=== PATIENT | male | born 1970 | race Two or more races ===

== ENCOUNTER 2019-04-16 20:40 | Emergency (ER) | payer MEDICARE ==
[2019-04-16] MEDS ORDERED: ERYTHROMYCIN 0.5% OPH OINT 1 GM UNIT DOSE OU ONE (21:51)
--- NOTE | 2019-04-16 21:56 | ER Document Report ---
HPI - HPI Time Seen by Provider: 04/16/19 21:49 Notes: CHIEF COMPLAINT: Bilateral eye redness and discharge HPI: 49-year-old male with hypertension history presenting for bilateral eye itching, redness and discharge. Patient states that he had conjunctivitis a year ago and it felt the exact same way. No glaucoma history. Patient denies visual change or loss. He reports drainage from both eyes. States he has been using Polytrim which has not been helping. Patient states last year when he had this he was placed on erythromycin ointment in the eyes and it worked very well. [place] is [place] from out of town ROS: See HPI - all other systems were reviewed and are otherwise negative Constitutional: no fever Eyes: + drainage, no blurred vision ENT: no runny nose, no sore throat Integumentary: no rash Allergy: no hives MEDICATIONS: I agree with the patient medications as charted by the RN. ALLERGIES: I agree with the allergies as charted by the RN. PAST MEDICAL HISTORY/PAST SURGICAL HISTORY: Reviewed and agree as charted by RN. SOCIAL HISTORY: Reviewed and agree as charted by RN. FAMILY HISTORY: No significant familial comorbid conditions directly related to patient complaint EXAM: Reviewed vital signs as charted by RN. CONSTITUTIONAL: Alert and oriented and responds appropriately to questions. Well-appearing; well-nourished, mild distress secondary to discomfort HEAD: Normocephalic; atraumatic EYES: PERRL; Conjunctivae injected bilaterally, sclerae non-icteric. No visible foreign bodies under the upper or lower lids. Funduscopic exam does not reveal evidence of disc edema or hemorrhage. No visible corneal abrasions. No periorbital erythema or cellulitis ENT: normal nose; no rhinorrhea; moist mucous membranes; pharynx without lesions noted, no uvula edema or deviation, no tonsillar hypertrophy, phonation normal NECK: Supple without meningismus; non-tender; no cervical lymphadenopathy, no masses CARD: symmetric distal pulses RESP: Normal chest excursion without splinting or tachypnea ABD/GI: non-distended BACK: The back appears normal EXT: Normal ROM in all joints; no cyanosis, no effusions, no edema SKIN: Normal color for age and race; warm; dry; good turgor; no acute lesions noted NEURO: Moves all extremities equally; Motor and sensory function intact PSYCH: The patient's mood and manner are appropriate. Grooming and personal hygiene are appropriate. MDM: 49-year-old male presenting with bilateral eye itching and discharge with r edness. States it feels exactly like when he had conjunctivitis a year ago that was treated with erythromycin successfully. No glaucoma history. Does not complain of ocular pain or vision loss that would suggest glaucoma. Patient wishes to be treated for conjunctivitis. Will place on erythromycin, follow-up local PCP Past Medical History - Social History Smoking Status: Former Smoker Family History: Reviewed & Not Pertinent Course - Vital Signs Vital signs: Temp Pulse Resp BP Pulse Ox 99.2 F 81 20 187/116 H 96 04/16/19 21:00 04/16/19 21:00 04/16/19 21:00 04/16/19 21:00 04/16/19 21:00 Discharge - Discharge Clinical Impression: Conjunctivitis, acute, bilateral Qualifiers: Acute conjunctivitis type: unspecified Qualified Code(s): H10.33 - Unspecified acute conjunctivitis, bilateral Condition: Stable Disposition: HOME, SELF-CARE Additional Instructions: Use the erythromycin ointment as prescribed. Follow-up with her primary care provider for reevaluation of symptoms in 2 to 3 days call for appointment. Return to the emergency department for ocular pain or visual loss Prescriptions: Erythromycin Base [Erythromycin Oph 1 Gm Oint Ud] 1 applic TOP BID 7 Days #1 tube Referrals: LEXI DIAZ DO [NO LOCAL MD] - Follow up as needed
[2019-04-16 22:17] VITALS: BP 184/108
== END 2019-04-16 22:06 | disposition home or self-care (01) ==
LOC: ER 20:40
DX: H10.33 Unspecified acute conjunctivitis, bilateral (principal); I10 Essential (primary) hypertension
CPT/HCPCS: 99282; A9270